=== PATIENT | female | born 1940 | race Caucasian/White ===

== ENCOUNTER 2023-08-28 14:27 | Emergency (ER) | payer OTHER, SELFPAY ==
[2023-08-28 14:32] VITALS: BP 182/96
[2023-08-28 15:01] VITALS: BMI 21.3
--- NOTE | 2023-08-28 15:10 | ED.MUSCINJ ---
HPI-Injury
General
Chief Complaint: Fall
Source: patient
Exam Limitations: none
Time Seen by Provider: 08/28/23 15:10
Nursing documentation reviewed up to this point in time: agreed with
History of Present Illness-Injury
Initial Injury comments:
83-year-old female history of A-fib, NIDDM, HTN, HLD, on Eliquis states she was visiting in [place] and 5 days ago was pulling an ice bag out of the freezer, it got stuck, she let go and fell backwards onto her buttock. She denies hitting her head
or any other injury. Was able to get up and ambulate well. It wasn't until 1.5 days later she noted the swelling, pain and bruising to left buttock. She rode in car home from [place]. Pain has become worse in the buttock. Denies f/c/n/v/d/c. Denies
abdominal pain. Denies weakness or dizziness/lightheadedness.
Past History
Past History
ED Past Medical History: Arrthythmia (Afib on Eliquis), HTN, Hypercholesterolemia and NIDDM
ED Past Surgical History: Cardiac (loop recorder) and Other (hernia)
Social History
Tobacco: Non-smoker
Alcohol: Occasional
Living: with family
Review of Systems
Review of Systems
Allergies reviewed?: Yes
All Other Systems: ROS reviewed and negative except as documented in HPI and ROS
Constitutional: Denies fever
Respiratory: Denies trouble breathing
Cardiac: Denies chest pain
ABD/GI: Denies abdominal pain or nausea
: Denies dysuria, frequency or difficulty voiding
Musculoskeletal: Reports other (pain, swelling, brusing left buttock); Denies neck pain or back pain
Neurological: Denies weakness or numbness
Phy Exam
Physical Exam
Physical Exam:
GENERAL: No acute distress. A&Ox3.
CONSTITUTIONAL: Afebrile.
EYES: Clear, conjunctivae normal
Neck: Supple
ENMT: moist mucus membranes, Pharynx nl
RESPIRATORY: Regular respirations, nonlabored, lungs clear.
CARDIOVASCULAR: Regular rate and rhythm, no murmurs, no rubs.
GI: Soft, nontender, normal BS
MUSCULOSKELETAL: Moves with ease. Well perfused. Tender left buttock at site of hematoma
SKIN: Warm, dry, pink, localized softball sized hematoma raised about 1 to 2 cm off the skin with surrounding ecchymosis left buttock
PSYCH: Normal mood and affect. Well kept, interactive and appropriate
NEUROLOGIC: Awake, alert and oriented. No focal neurological deficits
Injury Course
Orders/Labs/Results
Orders:
Orders
08/28/23 14:31
ECG [Electrocardiogram (*1)] Urgent
Reason for Study: Other
Other Reason for Exam: fainting sensation
EKG- Treatment ONCE
08/28/23 14:41
CT Pelvis With Iv Contrast Urgent
Comment:
Reason For Exam: fall injury with significant bruising to backside
08/28/23 15:00
Type+Screen Urgent
Complete Blood Count/With Diff Urgent
Comprehensive Metabolic Panel Urgent
PTT Urgent
08/28/23 16:08
Tramadol HCl [Ultram] 25 mg PO NOW STA
Abnormal Lab Results
08/28/23
15:00
RBC 3.20 L 10^6/uL
(4.20-5.40)
Hgb 9.6 L g/dL
(12.0-16.0)
Hct 27.6 L %
(37.0-47.0)
RDW 15.9 H %
(11.5-14.5)
Lymphocytes % 18.0 L %
(20.5-51.1)
BUN 23 H mg/dl
(7-17)
Creatinine 1.3 H mg/dL
(0.6-1.0)
Glucose 160 H mg/dl
(70-99)
08/28/23 15:00
08/28/23 15:00
MDM/Problems Addressed
Differential Diagnosis Includes:
internal bleeding, hematoma buttock
Pelvic, hip fx vs STI
MDM/Problems Addressed:
83-year-old female history of A-fib, NIDDM, HTN, HLD, on Eliquis states she was visiting in [place] and 5 days ago was pulling an ice bag out of the freezer, it got stuck, she let go and fell backwards onto her buttock. She denies hitting her head
or any other injury. Was able to get up and ambulate well. It wasn't until 1.5 days later she noted the swelling, pain and bruising to left buttock. She rode in car home from [place]. Pain has become worse in the buttock. Denies f/c/n/v/d/c. Denies
abdominal pain. Denies weakness or dizziness/lightheadedness.
EKG: Sinus rhythm with PVCs.
3:45 PM
CBC: Hemoglobin 9.6, nothing to compare
CMP: BUN/creat 23/1.3, nothing to compare
Pt states she has 'a little' anemia and 'a little' kidney insufficiency. Copies of her lab work and all tests given to her to take to her PCP next week for recheck.
Spoke with daughter who agrees, PCP aware, patient has an ultrasound of her kidneys scheduled for next week
Patient and daughter are asking for something stronger than just Tylenol for pain. Due to her kidney functions, creatinine clearance 25 mL/mi will minimize dose to 25 mg every 12 hours as needed pain and give 6 tablets to get her through the
weekend, she is to follow-up with her PCP after the weekend
5:[address] pelvis with IV contrast radiology report read: IMPRESSION:
Marked heterogeneous edematous changes of the left gluteal region most likely representing posttraumatic changes and possible large hematoma.
No findings to suggest recent cortical fracture about the bony pelvis.
Patient is stable for discharge. Discharged via wheelchair to care of daughter
*EKG
EKG Intrepretation Date: 08/28/23
Interpretation: abnormal
Rate: normal
Rhythm: sinus and PVC's
[place]: normal axis
Interval: normal interval
QRS Pattern: normal QRS
Ischemia: no ischemia
*Critical Care Note
Total Time (30-74mins, 75-104mins- exclusive of procedures): Not Applicable
ED Attending Note
-
Portions of this chart may have been created with voice recognition software.� Occasional wrong word or��sound alike� substitutions may have occurred due to the inherent limitations of voice recognition software.
Discharge Plan
Departure
Patient Disposition: Home (Routine Discharge)
Date of Disposition: 08/28/23
Time of Disposition: 17:29
Patient with high blood pressure during this ER visit?: Yes
Condition: Good
Discharge Problem:
Hematoma of left buttock, Fall from slip, trip, or stumble
Instructions: Hematoma, Narcotic Pain Medication
Prescriptions:
New
tramadol 25 mg tablet
25 mg PO Q12H PRN (Reason: Pain) Qty: 6 0RF
Referrals:
Nereida Alexandra, [Family Provider] - Follow up in 5-7 days
Activity Restrictions/Additional Instructions:
As we discussed, nothing worrisome in your workup here today.
Tylenol 1000 mg every 6 hours as needed for mild to moderate pain and use the Tramadol every 12 hours as needed for worse pain.
I sent a prescription to your pharmacy for Tramadol
Warm, moist compress to the area 4 times a day for 20 minutes as much as you can.
See your doctor next week for recheck. Take copies of all your tests from today.
Interventions
Interventions:
*Risk Screen - Suicide Last Done: 08/28/23 14:32
*General Assessment Last Done: 08/28/23 14:32
*Neglect/Abuse Screening Last Done: 08/28/23 14:32
*ED COVID-19 Vaccine History Last Done: 08/28/23 17:54
*Nursing Disposition Last Done: 08/28/23 17:54
ED-Musculoskeletal Assessment Last Done: 08/28/23 15:28
ED- Neurological Assessment Last Done: 08/28/23 15:27
ED-Skin Assessment Last Done: 08/28/23 15:27
Discharge Date and Time
Discharge Date/Time: 08/28/23 17:54
Print Language: THAI
[2023-08-28 15:18] LABS: % Basophils 0.9 % (0-2); % Eosinophils 3.2 % (0-6); % Immature Granulocytes 0.2 % (0-0.5); % Monocytes 6.4 % (1.7-9.3); % Neutrophils 71.3 % (42.2-75.2); Absolute Basophils 0.1 10^3/uL (0-0.2); Absolute Eosinophils 0.2 10^3/uL (0-0.7); Absolute Lymphocytes 1.2 10^3/uL (1.2-3.4); Absolute Monocytes 0.4 10^3/uL (0.1-0.6); Absolute Neutrophils 4.7 10^3/uL (1.4-6.5); Hematocrit 27.6 % (37.0-47.0); Hemoglobin 9.6 g/dL (12.0-16.0); Mean Corp Hgb Conc. 34.8 g/dL (33.0-37.0); Mean Corpuscular Volume 86.3 fL (81.0-99.0); Mean Platelet Volume 8.3 fL (7.4-10.4); Nucleated Red Blood Cells % 0 %; Platelet Count 316 10^3/uL (130-400); Red Cell Dist. Width 15.9 % (11.5-14.5); White Blood Cell Count 6.6 10^3/uL (4.8-10.8)
[2023-08-28 15:28] VITALS: BP 184/83
[2023-08-28 15:29] LABS: APTT 28.7 Sec (23.4-35.0)
[2023-08-28 15:31] LABS: ALT (SGPT) 12 U/L (0-35); AST (SGOT) 31 U/L (14-36); Albumin 3.9 g/dl (3.5-5.0); Alkaline Phosphatase 60 U/L (38-126); Blood Urea Nitrogen 23 mg/dl (7-17); Calcium 8.9 mg/dl (8.4-10.2); Carbon Dioxide 23 mmol/L (22-30); Chloride 102 mmol/L (98-107); Estimated Creatinine Clearance 25 ml/min; Glucose 160 mg/dl (70-99); Potassium 4.1 mmol/L (3.5-5.1); Sodium 135 mmol/L (135-145); Total Protein 6.8 g/dl (6.3-8.2); eGFR 40.55
[2023-08-28] MEDS: ULTRAM 25 MG PO (16:17)
[2023-08-28 17:33] VITALS: BP 178/65
== END 2023-08-28 17:54 | disposition home or self-care (01) ==
LOC: EMR 14:27
PROVIDERS: Emergency Medicine; EMERGENCY PHYSICIAN Emergency Medicine; FAMILY PHYSICIAN Family Medicine
DX: S30.0XXA Contusion of lower back and pelvis, initial encounter (principal); W18.30XA Fall on same level, unspecified, initial encounter; I48.91 Unspecified atrial fibrillation; I10 Essential (primary) hypertension; E78.00 Pure hypercholesterolemia, unspecified; E11.9 Type 2 diabetes mellitus without complications; Z79.01 Long term (current) use of anticoagulants
CPT/HCPCS: 99284; 72193; 80053; 85025; 85730; 86850; 86900; 86901; 93005; Q9967

== ENCOUNTER 2024-01-27 12:06 | Emergency (ER) | payer OTHER, SELFPAY ==
[2024-01-27] VITALS (17 sets, daily range): BP systolic 110–152; BP diastolic 68–106; BMI 23.8
[2024-01-27 12:36] LABS: % Basophils 0.9 % (0-2); % Eosinophils 2.4 % (0-6); % Immature Granulocytes 0.3 % (0-0.5); % Lymphocytes 19.2 % (20.5-51.1); % Monocytes 7.5 % (1.7-9.3); % Neutrophils 69.7 % (42.2-75.2); Absolute Basophils 0.1 10^3/uL (0-0.2); Absolute Eosinophils 0.2 10^3/uL (0-0.7); Absolute Lymphocytes 1.3 10^3/uL (1.2-3.4); Absolute Monocytes 0.5 10^3/uL (0.1-0.6); Absolute Neutrophils 4.6 10^3/uL (1.4-6.5); Hematocrit 32.9 % (37.0-47.0); Hemoglobin 10.5 g/dL (12.0-16.0); Mean Corp Hgb Conc. 31.9 g/dL (33.0-37.0); Mean Corpuscular Hgb 30.3 pg (27.0-31.0); Mean Corpuscular Volume 94.8 fL (81.0-99.0); Mean Platelet Volume 8.4 fL (7.4-10.4); Nucleated Red Blood Cells % 0 %; Platelet Count 323 10^3/uL (130-400); Red Blood Cell Count 3.47 10^6/uL (4.20-5.40); Red Cell Dist. Width 13.7 % (11.5-14.5); White Blood Cell Count 6.6 10^3/uL (4.8-10.8)
[2024-01-27 12:48] LABS: INR 1.02; PT 13.9 Sec (11.4-14.6)
[2024-01-27 13:01] LABS: ALT (SGPT) 20 U/L (0-35); AST (SGOT) 24 U/L (14-36); Albumin 3.8 g/dl (3.5-5.0); Alkaline Phosphatase 62 U/L (38-126); Blood Urea Nitrogen 20 mg/dl (7-17); Calcium 8.8 mg/dl (8.4-10.2); Carbon Dioxide 23 mmol/L (22-30); Chloride 101 mmol/L (98-107); Glucose 174 mg/dl (70-99); Potassium 4.8 mmol/L (3.5-5.1); Sodium 137 mmol/L (135-145); Total Bilirubin 0.3 mg/dl (0.2-1.3); Total Protein 6.3 g/dl (6.3-8.2); Troponin I < 0.012 ng/ml; eGFR 31.61
--- NOTE | 2024-01-27 13:09 | ED.GENMED ---
History of Present Illness
<Jesus Holguin PA-C - Last Filed: 01/27/24 14:44>
General
Chief Complaint: Breathing Problem
Source: patient and family
Time Seen by Provider: 01/27/24 12:43
History of Present Illness
History of Present Illness:
83-year-old female with past medical history of hypertension, hyperlipidemia, paroxysmal atrial fibrillation, insulin-dependent diabetes presenting to the emergency department for evaluation after being awoken around 1 AM feeling short of breath and
having palpitations. Symptoms continued this morning prompting her to notify her daughter who brought patient to the ER for further evaluation. Patient denies any chest pain, diaphoresis, exertional dyspnea, orthopnea, peripheral edema, cough or
other infectious symptoms. Patient does have a loop recorder and follows with cardiology at [facility]. Patient notes she is mostly compliant with her medications stating she might miss a dose or 2 throughout the week but notes that she did take her
Eliquis routinely over the last few days. She took her medications this morning. Patient's daughter does note patient does continue to drink an alcoholic beverage on occasion as well as somewhat daily caffeine.
Past History
<Jesus Holguin PA-C - Last Filed: 01/27/24 14:44>
Past History
ED Past Medical History: Arrthythmia (Afib on Eliquis), HTN, Hypercholesterolemia and NIDDM
ED Past Surgical History: Cardiac (loop recorder) and Other (hernia)
Social History
Tobacco: Non-smoker
Alcohol: Occasional
Drug: None
Personal:
Living: with family
Review of Systems
<Jesus Holguin PA-C - Last Filed: 01/27/24 14:44>
Review of Systems
All Other Systems: ROS reviewed and negative except as documented in HPI and ROS
Phy Exam
<Jesus Hogluin PA-C - Last Filed: 01/27/24 14:44>
Physical Exam
Physical Exam:
GENERAL: Alert , in no apparent distress
EYE: Clear conjunctiva
NECK: Supple
ENT: mmm.
CARDIAC: Irregularly irregular, tachycardic rate between 98 to 124 bpm
LUNGS: Clear breath sounds bilaterally, no acute respiratory distress,
NEUROLOGICAL: Alert and oriented
SKIN: Warm and dry, skin intact.
MUSCULOSKELETAL: well perfused.
PSYCH: Normal and appropriate interaction.
Scores
<Jesus Holguin PA-C - Last Filed: 01/27/24 14:44>
Heart Failure Risk
Heart Failure Risk Score: Not Applicable
Heart Score for Chest Pain Patients
STEMI patient?: Not applicable
Withdrawal Assessment of Alcohol
Withdrawal Assessment Completed?: Not applicable
Course
<Jesus Holguin PA-C - Last Filed: 01/27/24 14:44>
Orders/Labs/Results
Orders:
Orders
01/27/24
Electrocardiogram (*1) Stat
Comment: ALREADY DONE
01/27/24 12:12
EKG [Electrocardiogram (*1)] Urgent
Reason for Study: Palpitations
01/27/24 12:13
EKG- Treatment ONCE
01/27/24 12:20
Complete Blood Count/With Diff Urgent
Comprehensive Metabolic Panel Urgent
Prothrombin Time Urgent
Troponin I Urgent
01/27/24 13:28
ASA Classification Routine
Propofol [Diprivan] 100 mg IV NOW STA
Abnormal Lab Results
01/27/24
12:20
RBC 3.47 L 10^6/uL
(4.20-5.40)
Hgb 10.5 L g/dL
(12.0-16.0)
Hct 32.9 L %
(37.0-47.0)
MCHC 31.9 L g/dL
(33.0-37.0)
Lymphocytes % 19.2 L %
(20.5-51.1)
BUN 20 H mg/dl
(7-17)
Creatinine 1.6 H mg/dL
(0.6-1.0)
Glucose 174 H mg/dl
(70-99)
01/27/24 12:20
01/27/24 12:20
Vital Signs
Initial and Last Documented VS:
Initial Vital Signs
Temp Pulse Resp BP Pulse Ox
98.5 F 124 24 152/94 98
01/27/24 12:10 01/27/24 12:10 01/27/24 12:10 01/27/24 12:10 01/27/24 12:10
Last Documented Vital Signs
Temp Pulse Resp BP Pulse Ox
98.2 F 74 16 111/74 99
01/27/24 14:20 01/27/24 14:20 01/27/24 14:20 01/27/24 14:20 01/27/24 14:20
Electrogalvanizing Machine Operator consulted with Physician
Electrogalvanizing Machine Operator consulted with physician?: Yes
Name of Physician Consulted: Yuri
<Cesar Welch MD - Last Filed: 01/27/24 15:38>
Orders/Labs/Results
Orders:
Orders
01/27/24
Electrocardiogram (*1) Stat
Comment: ALREADY DONE
01/27/24 12:12
EKG [Electrocardiogram (*1)] Urgent
Reason for Study: Palpitations
01/27/24 12:13
EKG- Treatment ONCE
01/27/24 12:20
Complete Blood Count/With Diff Urgent
Comprehensive Metabolic Panel Urgent
Prothrombin Time Urgent
Troponin I Urgent
01/27/24 13:28
ASA Classification Routine
Propofol [Diprivan] 100 mg IV NOW STA
Abnormal Lab Results
01/27/24
12:20
RBC 3.47 L 10^6/uL
(4.20-5.40)
Hgb 10.5 L g/dL
(12.0-16.0)
Hct 32.9 L %
(37.0-47.0)
MCHC 31.9 L g/dL
(33.0-37.0)
Lymphocytes % 19.2 L %
(20.5-51.1)
BUN 20 H mg/dl
(7-17)
Creatinine 1.6 H mg/dL
(0.6-1.0)
Glucose 174 H mg/dl
(70-99)
01/27/24 12:20
01/27/24 12:20
Vital Signs
Initial and Last Documented VS:
Initial Vital Signs
Temp Pulse Resp BP Pulse Ox
98.5 F 124 24 152/94 98
01/27/24 12:10 01/27/24 12:10 01/27/24 12:10 01/27/24 12:10 01/27/24 12:10
Last Documented Vital Signs
Temp Pulse Resp BP Pulse Ox
98.2 F 74 16 111/74 99
01/27/24 14:20 01/27/24 14:20 01/27/24 14:20 01/27/24 14:20 01/27/24 14:20
Procedures
<Jesus Holguin PA-C - Last Filed: 01/27/24 14:44>
Cardioversion
Indication:: Afib
Performed by:: Dr. Welch/Jesus Holguin PA-C
Synchronized?: Yes
Energy Used: 200 joules
Number of attempts: 1
Successful?: Yes
ASA Risk Score: Class II
Any reaction or bad outcome to prior sedation/anesthesia?: No history of a reaction
Sedation level to be attained: moderate
Chart and allergies reviewed: Yes
Patient reassessed prior to sedation: Yes
Time out completed at (validating right patient & procedure): 13:36
History of difficult intubation: No
Airway free of obstruction: Yes
Patient has a gag reflex: Yes
Patient is able to open mouth: Yes
Patient has no dentures: Yes
Patient has no loose teeth: Yes
Medication administered by Provider during Moderate Sedation: IV Propofol (mg)
Total dose administered: 40
Time drug administered: 13:36
Start Time: 13:37
Stop Time: 13:45
<Jesus Holguin PA-C - Last Filed: 01/27/24 14:44>
MDM/Problems Addressed
Differential Diagnosis Includes:
Atrial fibrillation with rapid ventricular rate, valvular dysfunction, less concern for ACS, less concern for infectious etiology
MDM/Problems Addressed:
83-year-old female presenting to the emergency department for evaluation of palpitations and shortness of breath that started earlier this morning around 1 AM with symptoms continuing this morning. Patient found to be in atrial fibrillation with a
rapid ventricular rate around 150 ended on average. Patient is otherwise hemodynamically stable and in no acute distress. We had extensive conversation with the patient and daughter about rate versus rhythm control and after discussion both the
patient and daughter would like to pursue synchronized cardioversion. I do think this is reasonable given patient is having significant symptoms from her A-fib as well as reports good compliance with her medications. Anticipate discharge home with
close outpatient follow-up with her cardiology
Chronic conditions affecting care: Arrhythmia
Acute Exacerbation and/or Progression of Chronic Illness: Arrhythmia
<Jesus Holguin PA-C - Last Filed: 01/27/24 14:44>
*Pulse Oximetry
Patient hypoxic: no
*EKG
Interpreted by ED Provider?: Yes
Heart Rate: 113
Rate: tachycardiac
Rhythm: a-fib
[place]: normal axis
*Risk Professional Interpretation
Rate: tachycardiac
Rhythm: a-fib
*Critical Care Note
Total Time (30-74mins, 75-104mins- exclusive of procedures): Not Applicable
Data Reviewed
Review of Other/Old Records Reveals: Records
<Cesar Welch MD - Last Filed: 01/27/24 15:38>
*Critical Care Note
Total Time (30-74mins, 75-104mins- exclusive of procedures): 30 min
<Jesus Holguin PA-C - Last Filed: 01/27/24 14:44>
Patient Management
Escalation/DeEscalation of care consider admission/obs:
Patient tolerated procedure well without any difficulty. She remains well-appearing and has symptom improvement. Patient's daughter will ensure close follow-up with her [employer] at [place] [facility]. Aware of return precautions. Stable for discharge
home. Repeat EKG showed a normal sinus rhythm with PACs.
ED Attending Note
<Jesus Holguin PA-C - Last Filed: 01/27/24 14:44>
-
Portions of this chart may have been created with voice recognition software.� Occasional wrong word or��sound alike� substitutions may have occurred due to the inherent limitations of voice recognition software.
<Cesar Welch MD - Last Filed: 01/27/24 15:38>
ED Attending Note
Patient seen and examined by attending physician: Yes
ED Attending Note:
Patient with history of paroxysmal atrial fibrillation on Eliquis, presents ED secondary to sudden onset of palpitations associated shortness of breath, upon waking up early this morning. Last Eliquis was taken this morning. Denies recent illness.
Denies chest pain. Denies dizziness. Denies nausea or vomiting. Denies recent travel or surgery.
Physical Exam
General: no apparent distress, not acutely ill. afebrile. thin appearing
Head: nc/at. eomi
Neck: supple. no meningeal signs.
Heart: irregularly irregular, tachycardic, no murmur. equal radial pulses.
Lungs: no acute respiratory distress. clear bilaterally
Abdomen: normal bowel sounds. not tender.
Neuro: alert and oriented. no focal neurological deficits
Skin: no rash
Psychiatric: well kept. interactive and cooperative
Extremities: no edema. no calf tenderness.
History exam consistent with symptomatic, rapid atrial fibrillation. This was made to perform cardioversion.
Procedural consent on the chart.
Patient successfully cardioverted after sedation with propofol. Repeat EKG confirms normal sinus rhythm.
Patient reports resolution of presenting symptoms, i.e. shortness of breath/lightheadedness. Patient otherwise is afebrile, helically stable, and appears comfortable, at time of discharge to the care of her daughter. Patient will follow-up with
her primary [facility] [employer] at [facility] for an outpatient evaluation.
Critical care statement: A total of 30 minutes of critical care time was provided for this patient. This includes management of unstable vital signs, evaluation of the patient at bedside, reviewing the patient's pertinent medical records, review of
old EKGs and review of pertinent medical records. This time with separate from time utilized to perform the aforementioned documented procedures
Discharge Plan
Departure
Patient Disposition: Home (Routine Discharge)
Date of Disposition: 01/27/24
Time of Disposition: 14:10
Patient with high blood pressure during this ER visit?: Yes
Discharge Problem:
Atrial fibrillation with rapid ventricular response
Instructions: Atrial Fibrillation (DC)
Prescriptions:
No Action
tramadol 25 mg tablet
25 mg PO Q12H PRN (Reason: Pain) Qty: 6 0RF
Referrals:
Nereida Alexandra DO [Family Provider] -
Interventions
Interventions:
*Risk Screen - Suicide Last Done: 01/27/24 12:10
*General Assessment Last Done: 01/27/24 12:10
*Neglect/Abuse Screening Last Done: 01/27/24 12:10
ED- Fall Risk Assessment Last Done: 01/27/24 13:03
*ED COVID-19 Vaccine History Last Done: 01/27/24 12:10
*Nursing Disposition Last Done: 01/27/24 14:22
ED- Cardiac Assessment Last Done: 01/27/24 13:41
ED- Pulmonary Assessment Last Done: 01/27/24 13:03
Discharge Date and Time
Discharge Date/Time: 01/27/24 15:02
Print Language: [id number]
[2024-01-27] MEDS: DIPRIVAN 40 MG IV (13:31)
== END 2024-01-27 15:02 | disposition home or self-care (01) ==
LOC: EMR 12:06
PROVIDERS: Emergency Medicine; EMERGENCY PHYSICIAN Emergency Medicine; FAMILY PHYSICIAN Family Medicine
DX: I48.91 Unspecified atrial fibrillation (principal); I10 Essential (primary) hypertension; E78.00 Pure hypercholesterolemia, unspecified; E11.9 Type 2 diabetes mellitus without complications; Z79.01 Long term (current) use of anticoagulants; Z79.4 Long term (current) use of insulin
CPT/HCPCS: 92960; 99152; 99285; 80053; 84484; 85025; 85610; 93005

== ENCOUNTER 2024-02-24 11:48 | Emergency (ER) | payer OTHER, SELFPAY ==
[2024-02-24 11:56] VITALS: BP 134/79
--- NOTE | 2024-02-24 12:31 | ED.GENMED ---
History of Present Illness
General
Chief Complaint: Head Injury
Time Seen by Provider: 02/24/24 12:17
History of Present Illness
History of Present Illness:
TIME OF INITIAL ENCOUNTER: 12:20 PM
HPI: While in [place] 3 days ago, the patient's legs got tangled in a blanket and she fell striking the left side of her head on a coffee table. She had no symptoms for the first 2 days but last night and today had some increased discomfort to the
left side of the head. She went to primary care who told her to come to the Emergency Department. The patient is on Eliquis. She denies any neck pain. She denies any other injury. She states she recently had a cardioversion
EXAM:
GENERAL: Well appearing in no distress
CERVICAL SPINE: No midline c-spine tenderness with excellent AROM
HEAD: There is a 2 cm left parietal temporal scalp hematoma
CHEST: No chest wall tenderness, normal heart sounds
LUNGS: Equal lung sounds, no respiratory distress
ABDOMEN: No abdominal tenderness, no peritoneal signs
EXTREMITIES: Normal active range of motion, no tenderness
NEURO: Excellent strength all extremities, appropriate mental status, normal speech/language
NUMBER AND COMPLEXITY OF PROBLEMS ADDRESSED AT THE ENCOUNTER
� Chronic conditions affecting care: Atrial fibrillation on Eliquis
� Acute Exacerbation and/or Progression of Chronic Illness: This is an acute problem
� Differential Diagnosis includes: Intracranial hemorrhage, minor head injury, scalp hematoma
AMOUNT AND/OR COMPLEXITY OF DATA TO BE REVIEWED AND ANALYZED
� I performed an independent evaluation of and my interpretation is:
EKG:
CT: I personally viewed CT of the brain and see no acute abnormality
X-rays:
Laboratory Studies:
Other:
� Review of other/old records: I reviewed records, the patient had a cardioversion less than 1 month ago, she was also seen here after a fall in August of this year
� Clinical information was obtained by an independent historian: I spoke to the daughter at bedside
� Prescriptions/Medications Considered but not given:
� Further testing considered but not performed:
RISK OF COMPLICATIONS AND/OR MORBIDITY OR MORTALITY OF PATIENT MANAGEMENT
� Social determinants of health affecting care: Lives at home
� Discussion with other providers:
� Escalation of care including admission/observation vs risk of discharge considered: Given patient's age on Eliquis with head injury and now worsening symptoms, CT of the head was obtained.
ANY OTHER UPDATES:
1:50 PM: Patient's blood pressure did increase while in the Emergency Department but she did not take her blood pressure medication today. CT imaging reassuring. She appears very comfortable time of discharge.
Past History
Past History
ED Past Medical History: Arrthythmia (Afib on Eliquis), HTN, Hypercholesterolemia and NIDDM
ED Past Surgical History: Cardiac (loop recorder) and Other (hernia)
Social History
Tobacco: Non-smoker
Alcohol: Occasional
Drug: None
Personal:
Living: with family
Phy Exam
Physical Exam
Physical Exam:
See HPI
Course
Orders/Labs/Results
Orders:
Orders
02/24/24 12:02
CT Head W/o Iv Contrast Urgent
Comment:
Reason For Exam: head injury, on blood thinner
Vital Signs
Initial and Last Documented VS:
Initial Vital Signs
Temp Pulse Resp BP Pulse Ox
37.0 C 73 16 134/79 98
02/24/24 11:56 02/24/24 11:56 02/24/24 11:56 02/24/24 11:56 02/24/24 11:56
Last Documented Vital Signs
Temp Pulse Resp BP Pulse Ox
37.0 C 68 16 134/79 96
02/24/24 11:56 02/24/24 12:54 02/24/24 11:56 02/24/24 11:56 02/24/24 12:54
*Critical Care Note
Total Time (30-74mins, 75-104mins- exclusive of procedures): Not Applicable
ED Attending Note
-
Portions of this chart may have been created with voice recognition software.� Occasional wrong word or��sound alike� substitutions may have occurred due to the inherent limitations of voice recognition software.
Discharge Plan
Departure
Patient Disposition: Home (Routine Discharge)
Date of Disposition: 02/24/24
Time of Disposition: 13:51
Patient with high blood pressure during this ER visit?: Yes
Discharge Problem:
Head injury
Instructions: Head Injury in Adults (DC), BLOOD PRESSURE
Prescriptions:
No Action
Eliquis 5 mg Tablet
5 mg PO BID
Referrals:
Nereida Alexandra, DO [Family Provider] -
Activity Restrictions/Additional Instructions:
The CAT scan of the brain shows no bleeding. Your blood pressure has been very high�follow-up with your primary care doctor.
Interventions
Interventions:
*Risk Screen - Suicide Last Done: 02/24/24 11:56
*General Assessment Last Done: 02/24/24 11:56
*Neglect/Abuse Screening Last Done: 02/24/24 12:37
ED- Fall Risk Assessment Last Done: 02/24/24 12:37
*ED COVID-19 Vaccine History Last Done: 02/24/24 11:56
ED- Neurological Assessment Last Done: 02/24/24 12:37
ED-Skin Assessment Last Done: 02/24/24 12:37
Discharge Date and Time
Print Language: AUSTRIAN
[2024-02-24 12:37] VITALS: BMI 25.0
[2024-02-24 13:00] VITALS: BP 178/86
--- NOTE | 2024-02-24 13:45 | EDRN ---
this RN noticed that the pt is hypertensive still, this RN notified Dr. Rogers again and per the provider no new orders were received, per the provider, Dr. Rogers spoke with the pt and per the pt she did not take her BP medication
today, the provider educated the pt that when she gets home she needs to take her BP medication, the pt verbally stated that she understood
== END 2024-02-24 14:09 | disposition home or self-care (01) ==
LOC: EMR 11:48
PROVIDERS: EMERGENCY PHYSICIAN Emergency Medicine; FAMILY PHYSICIAN Family Medicine
DX: S00.03XA Contusion of scalp, initial encounter (principal); W01.190A Fall on same level from slipping, tripping and stumbling with subsequent striking against furniture, initial encounter; I48.91 Unspecified atrial fibrillation; E11.9 Type 2 diabetes mellitus without complications; E78.00 Pure hypercholesterolemia, unspecified; I10 Essential (primary) hypertension; Z79.01 Long term (current) use of anticoagulants
CPT/HCPCS: 99284; 70450